=== PATIENT | female | born 1955 | race Caucasian/White ===

== ENCOUNTER 2022-02-05 09:37 | Emergency (ER) | payer MEDICARE, BC ==
[2022-02-05] MEDS ORDERED: Bacitracin 1 PK ONE (10:48)
== END 2022-02-05 11:15 | disposition home or self-care (01) ==
LOC: CSHERS 09:37
DX: S52.022A Displaced fracture of olecranon process without intraarticular extension of left ulna, initial encounter for closed fracture (principal); W01.0XXA Fall on same level from slipping, tripping and stumbling without subsequent striking against object, initial encounter
CPT/HCPCS: 29105

== ENCOUNTER 2022-02-06 20:19 | Emergency (ER) | payer MEDICARE, BC ==
[2022-02-06 21:18] LABS: #Basophils 0.1 10x3/uL (0.0-0.2); #Eosinphils 0.2 10x3/uL (0.0-0.5); #Monocytes 0.6 10x3/uL (0.0-1.1); #Neutrophils 4.3 10x3/uL (1.5-8.4); %Basophils 0.7 % (0.0-2.0); %Eosinophils 2.8 % (0.0-6.0); %Lymphocytes 31.8 % (18.0-47.0); %Monocytes 7.9 % (0.0-10.0); %Neutrophils 56.7 % (40.0-75.0); Hemoglobin 12.5 g/dL (12.0-15.5); Mean Corpuscular HGB CONC 34.2 g/dL (32.0-36.0); Mean Corpuscular Hemoglobin 30.8 pg (27.0-33.0); Mean Corpuscular Volume 90.1 fl (81.6-98.3); Mean Platelet Volume 10.1 fl (7.4-10.4); Platelet Count 231 10x3/uL (150-450); RBC Distribution Width 12.9 % (11.5-14.5); Red Blood Cell (RBC) Count 4.06 10x6/uL (3.90-5.03); White Blood Cell (WBC) Count 7.6 10x3/uL (3.5-10.5)
[2022-02-06 21:27] LABS: PTT 21.3 sec (22.0-33.0)
== END 2022-02-06 22:50 | disposition home or self-care (01) ==
LOC: CSHERS 20:19
DX: S52.022A Displaced fracture of olecranon process without intraarticular extension of left ulna, initial encounter for closed fracture (principal); S41.112A Laceration without foreign body of left upper arm, initial encounter; W01.0XXA Fall on same level from slipping, tripping and stumbling without subsequent striking against object, initial encounter
CPT/HCPCS: 12011; 85025; 85610; 85730

== ENCOUNTER 2025-03-31 13:07 | Emergency (ER) | payer MEDICARE ==
[2025-03-31] MEDS ORDERED: Pantoprazole 40 MG VIAL ONE (13:48)
[2025-03-31] MEDS ORDERED: Famotidine/PF 20 mg/2ml Vial ONE (13:48)
[2025-03-31 13:54] LABS: #Basophils 0.05 10x3/uL (0.0-0.2); #Eosinophils 0.10 10x3/uL (0.0-0.5); #Monocytes 0.48 10x3/uL (0.0-1.1); #Neutrophils 4.35 10x3/uL (1.5-8.4); %Basophils 0.7 % (0.0-2.0); %Eosinophils 1.4 % (0.0-6.0); %Lymphocytes 28.6 % (18.0-47.0); %Monocytes 6.9 % (0.0-10.0); %Neutrophils 62.1 % (40.0-75.0); Hematocrit 38.9 % (34.9-44.5); Hemoglobin 13.2 g/dL (12.0-15.5); Mean Corpuscular Hemoglobin 30.4 pg (27.0-33.0); Mean Corpuscular Volume 89.6 fL (81.6-98.3); Platelet Count 199 10x3/uL (150-450); Red Blood Cell (RBC) Count 4.34 10x6/uL (3.90-5.03); White Blood Cell (WBC) Count 7.00 10x3/uL (3.5-10.5)
[2025-03-31 14:19] LABS: ALT (SGPT) 20 U/L (Less than 34); AST (SGOT) 28 U/L (11-34); Albumin 3.8 g/dL (3.1-4.5); Alkaline Phosphatase 75 U/L (40-110); Anion Gap 13 mmol/L (10-20); BUN (Urea Nitrogen) 11 mg/dL (9.8-20.1); Bilirubin, Total 0.5 mg/dL (0.3-1.2); Calc. Creatinine Clearance 0 mL/min (70-130); Calcium 8.8 mg/dL (7.8-10.44); Carbon Dioxide 25 mmol/L (23-31); Chloride 105 mmol/L (98-107); Globulin 2.2 g/dL (2.4-3.5); Glucose 89 mg/dL (80-115); Lipase 22 U/L (8-78); Magnesium 1.9 mg/dL (1.6-2.6); Potassium 4.0 mmol/L (3.5-5.1); Sodium 139 mmol/L (136-145)
[2025-03-31 14:21] LABS: Troponin I Less than 0.010 ng/mL (< 0.028)
[2025-03-31 16:21] LABS: Troponin I Less than 0.010 ng/mL (< 0.028)
== END 2025-03-31 17:15 | disposition home or self-care (01) ==
LOC: CSHERS 13:07
DX: R42 Dizziness and giddiness (principal); R13.10 Dysphagia, unspecified; R11.0 Nausea; R29.700 NIHSS score 0; Z55.6 Problems related to health literacy; Z87.891 Personal history of nicotine dependence
CPT/HCPCS: 71045; 80053; 83690; 83735; 84484 ×2; 85025; 93005; J1308; J2470; 36415; 96374; 96375

== ENCOUNTER 2025-06-09 07:42 | Outpatient (CLI) | payer MEDICARE ==
[2025-06-09] MEDS ORDERED: Iopamidol 300 61% 100 ML VIAL FS ONE (08:51)
[2025-06-09 10:05] LABS: Estimated GFR - POC 69.0
== END 2025-06-09 07:43 | disposition home or self-care (01) ==
LOC: CSHCT 07:42
PROVIDERS: ATTEND Physician Assistant Medical
DX: R10.13 Epigastric pain (principal); R19.7 Diarrhea, unspecified; R13.10 Dysphagia, unspecified; K82.8 Other specified diseases of gallbladder
CPT/HCPCS: 36415; 74177; 82565